=== PATIENT | male | born 1980 | race Caucasian/White ===

== ENCOUNTER 2017-08-24 02:05 | Observation (INO) | payer OTHER ==
[2017-08-24] MEDS ORDERED: NS 1,000 ML IV ONE ×2 (02:11→02:45)
--- NOTE | 2017-08-24 02:18 | EDPHY ---
H & P Time Seen by Provider: 08/24/17 02:14 HPI/ROS: HPI CHIEF COMPLAINT: Full trauma activation. Fall 35 ft. HISTORY OF PRESENT ILLNESS: Patient is a 35-year-old male, unknown medical history unknown surgical history presents emergency room after he fell 35 ft. It is reported by bystanders that he fell down an embankment 35 ft. They did not witness this fall. Patient according to EMS was very agitated and aggressive and combative at the scene. They did give him 400 mg IM ketamine prior to arrival. Upon arrival to the emergency room the patient is lethargic however he does follow intermittent commands and moves extremities. However his mental state is very lethargic either due to trauma versus 400 mg IM ketamine. It is reported by EMS prior to the ketamine that the patient was agitated combative and moving all extremities. He does present to ER room 1. Full trauma activation. Dr. AXEL Mcneill at bedside. Patient is hemodynamically stable with a normal heart rate in the 60s blood pressure in the 1 30s. He has extensive abrasions throughout his head to toe trauma exam. There is no obvious sign of significant trauma on exam. Past Medical History: Unknown medical history Past Surgical History: Unknown surgical history Social History: Alcohol this evening reported by EMS. Also mushroom intoxication possibly reported by EMS Family History: ROS Review of systems extremely limited due to patient's clinical condition additionally the patient received 400 mg IM ketamine prior to arriving to the emergency room by EMS for acute agitation. This limits his history review of systems. Exam Constitutional lethargic lethargic upon arrival, vital signs stable Eyes normal conjunctivae and sclera, EOMI, 6 mm minimally reactive, equal HENT normal inspection, atraumatic, moist mucus membranes, no epistaxis, neck supple/ no meningismus, no raccoon eyes. Respiratory clear to auscultation bilaterally, normal breath sounds, no respiratory distress, no wheezing. Cardiovascular rate normal, regular rhythm, no murmur, no edema, distal pulses normal. Gastrointestinal soft, non-tender, no rebound, no guarding, normal bowel sounds, no distension, no pulsatile mass. Genitourinary no CVA tenderness. Musculoskeletal no midline vertebral tenderness, full range of motion, no calf swelling, no tenderness of extremities, no meningismus, good pulses, neurovascularly intact. Skin extensive abrasions throughout chest abdomen and back. No ecchymosis seen. Neurologic lethargic. Does follow intermittent commands. Moves all extremities. Psychiatric normal mood/affect. Heme/Lymph/Immune no lymphadenopathy. Differential Diagnosis: Includes but is not limited to in a particular order poly trauma, intracranial bleed, cervical spine injury, solid organ injury, thoracic injury, drug intoxication, alcohol intoxication, dehydration, rhabdomyolysis, electrolyte disturbance Medical Decision Making: Plan for this patient IV establishment IV fluid bolus , given his mental state he does intermittently follow commands and response to verbal and painful stimuli however is lethargic he does not require intubation emergently at this time. Will monitor his airway closely. Additionally he will have CT scan head, neck, chest abdomen pelvis with IV contrast with recon. Patient is 2 large-bore IVs. Patient has been typed and screen. Blood work has been ordered and CT scans. His fast was performed by Dr. AXEL Mcneill in the trauma [place] was negative. Re-evaluation: Critical Care: Total Critical Care Time Spent Managing this Patient: 65 Minutes. This time was spent Exclusively with this patient. This Care was exclusive of procedures. The Organ System/life at risk was poly trauma This Patient was in Critical Condition because poly trauma potentially multiple traumatic injuries. Fall [address] Oneal Mckeon called me with the CT reports. CT scan head without contrast there is a very small hyperdensity in the right lateral ventricle that could be a very small intraventricular hemorrhage. CT of the cervical spine without contrast shows no evidence of acute trauma. Additionally on the CT scan of the head shows a nasal spine fracture. Otherwise atraumatic head and neck CT. 0257: I did speak with Neurosurgery Dr. Salmeron, discussed this CT head scan with him. He will plan on consulting on the patient the morning. CT scan abdomen pelvis and chest with IV contrast for trauma shows no acute traumatic injury no solid organ injury. Called to me by Dr. Oneal mckeon. Please see full dictation of CT report for details. 0327: I did re-evaluate the patient is answer my questions appropriately. His friends at bedside states that he did fall down an embankment. Patient is resting comfortably at this time. He is hemodynamically stable. Patient be admitted to the ICU for monitoring. Remains in cervical collar. Patient back exam mid back shows a deep abrasion. Does not need sutures. Patient reports to me his tetanus shot is up-to-date. Source: Patient, EMS Constitutional: Initial Vital Signs Temperature (C) 36.8 C 08/24/17 03:55 Heart Rate 74 08/24/17 03:55 Respiratory Rate 16 08/24/17 03:55 Blood Pressure 130/77 H 08/24/17 03:55 O2 Sat (%) 92 08/24/17 03:55 Allergies/Adverse Reactions: No Known Allergies Allergy (Unverified 08/24/17 02:46) Home Medications: Medication Instructions Recorded NK [No Known Home Meds] 08/24/17 Medical Decision Making - Data Points Laboratory Results: Laboratory Results 08/24/17 02:10 08/24/17 02:10 Medications Given: Lactated Ringer's (Lr) 1,000 mls @ 75 mls/hr IV CONT BRITT Stop: 02/20/18 04:59 Last Admin: 08/24/17 04:15 Dose: 1,000 mls Discontinued Medications Sodium Chloride (Ns) 1,000 mls @ 0 mls/hr IV ONCE ONE; Wide Open PRN Reason: Protocol Stop: 08/24/17 02:12 Last Admin: 08/24/17 02:46 Dose: 1,000 mls Sodium Chloride (Ns) 1,000 mls @ 0 mls/hr IV ONCE ONE PRN Reason: Wide Open Stop: 08/24/17 02:46 Last Admin: 08/24/17 02:47 Dose: 1,000 mls Point of Care Test Results: Chemistry 08/24/17 02:13 POC Sodium 144 mEq/L mEq/L (135-145) POC Potassium 4.1 mEq/L mEq/L (3.3-5.0) POC Chloride 105 mEq/L mEq/L (97-110) POC BUN 9 mg/dL mg/dL (7-23) POC Creatinine 1.0 mg/dL mg/dL (0.7-1.3) POC Glucose 99 mg/dL mg/dL (70-100) ISTAT H&H 08/24/17 02:13 POC Hgb 17.3 gm/dL gm/dL (13.7-17.5) POC Hct 51 % % (40-51) Departure - Departure Disposition: [facility] In[facility] Acute Clinical Impression: Multiple abrasions, IVH (intraventricular hemorrhage) Fall Qualifiers: Encounter type: initial encounter Qualified Code(s): W19.XXXA - Unspecified fall, initial encounter Contusion Qualifiers: Encounter type: initial encounter Contusion area: head Contusion of head detail : unspecified part of head Qualified Code(s): S00.93XA - Contusion of unspecified part of head, initial encounter Condition: Critical
[2017-08-24 02:23] LABS: PLATELET COUNT 276 10^3/uL (150-400)
[2017-08-24 02:33] LABS: INR 1.09 (0.83-1.16); PROTIME(PATIENT) 14.3 SEC (12.0-15.0)
--- NOTE | 2017-08-24 03:07 | PDCONSULT ---
Journeyman Pipefitter Note: NEUROSURGERY Imaging reviewed. Full consult to follow. 36M fall down 35 foot embankment while intoxicated. Exam normal in ED. Radiology mentioning a possible right lateral ventricular IVH which I am not able to appreciate on the scans. -continue trauma workup -no need for furhter neurosurgical intervention. -no need for furhter scans unless exam change -pleas call with any questions or exam change. John Salmeron MD
[2017-08-24] MEDS ORDERED: HYDROmorphone HCL/NS 0.5 MG/ML SYR IVP PRN (04:30)
[2017-08-24] MEDS ORDERED: ONDANSETRON 4 MG/2 ML VIAL IVP PRN (04:30)
[2017-08-24] MEDS ORDERED: LR 1,000 ML IV SCH (05:00)
[2017-08-24 05:39] LABS: CREATINE KINASE 1229 IU/L (0-224)
--- NOTE | 2017-08-24 05:42 | CPEKG ---
Heart Rate: 78 RR Interval: 769 P-R Interval: 152 QRSD Interval: 90 QT Interval: 396 QTC Interval: 452 P [place]: 31 QRS [place]: 13 T Wave [place]: 10 EKG Severity - NORMAL ECG - EKG Impression: SINUS RHYTHM Electronically Signed By: Trina Greenberg 24-Aug-2017 21:40:42
--- NOTE | 2017-08-24 08:07 | SOAPPROG ---
SOAP Progress Note Assessment/Plan: Assessment: 36-YEAR-OLD MALE ADMITTED AT THIS TIME AFTER A FALL IN THE [place] AFTER DOING SOME MUSHROOMS AND DRINKING BROUGHT TO THE ER VERY SEDATED AFTER DOSED KETAMINE. HE APPARENTLY FELL DOWN 35 FT EMBANKMENT BUT OBVIOUSLY WENT THROUGH LOTS OF BUSHES AND/OR TREES WITH ALL THE SCRATCH IS ALL OVER HIS BODY. NO APPARENT MAJOR INJURIES ALTHOUGH THE PATIENT IS MINIMALLY RESPONSIVE BUT MOVING ALL EXTREMITIES MARTINEZ CT SCAN SHOWS NO REAL INJURIES FROM HEAD TO PELVIS. QUESTIONABLE DOT OF INTRAVENTRICULAR HEMORRHAGE HEENT PUPILS LARGE BUT REACTIVE, NO SIGNS OF HEAD TRAUMA, NO ORAL LESIONS NECK NONTENDER BUT IN A CERVICAL COLLAR CHEST CLEAR AND SYMMETRIC WITH NO PALPABLE RIB FRACTURES OR CLAVICLE FRACTURES COR REGULAR RHYTHM ABDOMEN SOFT NONTENDER WILL NONDISTENDED WITH BOWEL SOUNDS PELVIS INTACT AND NONTENDER EXTREMITIES FULL RANGE OF MOTION FULL DISTAL PULSES BACK NO BONY ABNORMALITIES OR STEP-OFFS HE DOES HAVE SOME SWELLING OVER THE RIGHT POSTERIOR 11TH AND 12TH RIBS JUST OFF THE MIDLINE NEURO MOVES ALL EXTREMITIES, SENSORY EXAM NOT USEFUL 9, CRANIAL NERVES INTACT, RESPONSIVE ONLY TO LOUD VERBAL STIMULI Plan: ADMIT FOR OBSERVATION IN ICU 08/24/17 08:01 Objective: Vital Signs Temp Pulse Resp BP Pulse Ox 36.9 C 78 14 102/57 L 96 08/24/17 06:00 08/24/17 06:00 08/24/17 06:00 08/24/17 06:00 08/24/17 06:00 Laboratory Results 08/24/17 04:57 08/23/17 08/24/17 08/25/17 05:59 05:59 05:59 Intake Total 2100 Output Total 1450 Balance 650 PT 14.3 SEC (12.0-15.0) 08/24/17 02:10 INR 1.09 (0.83-1.16) 08/24/17 02:10 ICD10 Worksheet Patient Problems: Problems Problem Status Onset Contusion Acute Fall Acute IVH (intraventricular hemorrhage) Acute Multiple abrasions Acute
--- NOTE | 2017-08-24 08:10 | SOAPPROG ---
SOAP Progress Note Assessment/Plan: Assessment: 36-YEAR-OLD MALE ADMITTED AT THIS TIME AFTER A FALL IN THE [place] AFTER DOING SOME MUSHROOMS AND DRINKING BROUGHT TO THE ER VERY SEDATED AFTER DOSED KETAMINE. HE APPARENTLY FELL DOWN 35 FT EMBANKMENT BUT OBVIOUSLY WENT THROUGH LOTS OF BUSHES AND/OR TREES WITH ALL THE SCRATCH IS ALL OVER HIS BODY. NO APPARENT MAJOR INJURIES ALTHOUGH THE PATIENT IS MINIMALLY RESPONSIVE BUT MOVING ALL EXTREMITIES MARTINEZ CT SCAN SHOWS NO REAL INJURIES FROM HEAD TO PELVIS. QUESTIONABLE DOT OF INTRAVENTRICULAR HEMORRHAGE HEENT PUPILS LARGE BUT REACTIVE, NO SIGNS OF HEAD TRAUMA, NO ORAL LESIONS NECK NONTENDER BUT IN A CERVICAL COLLAR CHEST CLEAR AND SYMMETRIC WITH NO PALPABLE RIB FRACTURES OR CLAVICLE FRACTURES COR REGULAR RHYTHM ABDOMEN SOFT NONTENDER WILL NONDISTENDED WITH BOWEL SOUNDS PELVIS INTACT AND NONTENDER EXTREMITIES FULL RANGE OF MOTION FULL DISTAL PULSES BACK NO BONY ABNORMALITIES OR STEP-OFFS HE DOES HAVE SOME SWELLING OVER THE RIGHT POSTERIOR 11TH AND 12TH RIBS JUST OFF THE MIDLINE NEURO MOVES ALL EXTREMITIES, SENSORY EXAM NOT USEFUL 9, CRANIAL NERVES INTACT, RESPONSIVE ONLY TO LOUD VERBAL STIMULI Plan: ADMIT FOR OBSERVATION IN ICU 08/24/17 08:01 08/24/17 08:08 PATIENT DOING WELL NOW BUT BRIEF 60 SEC EPISODE OF ASYSTOLE WHICH RESPONDED RAPIDLY TO CPR EARLY THIS MORNING LABS OKAY/EKG OKAY/ALERT ORIENTED AND TOTALLY RESPONSIVE/NECK SUPPLE NONTENDER AND C COLLARED REMOVED PATIENT TOTALLY ALERT NOW AND COMFORTABLE WITH NO NEW COMPLAINTS/ WILL NEED CARDIOLOGY EVAL PRIOR TO DISCHARGE Objective: Vital Signs Temp Pulse Resp BP Pulse Ox 36.9 C 78 14 102/57 L 96 08/24/17 06:00 08/24/17 06:00 08/24/17 06:00 08/24/17 06:00 08/24/17 06:00 Laboratory Results 08/24/17 04:57 08/23/17 08/24/17 08/25/17 05:59 05:59 05:59 Intake Total 2100 Output Total 1450 Balance 650 PT 14.3 SEC (12.0-15.0) 08/24/17 02:10 INR 1.09 (0.83-1.16) 08/24/17 02:10 ICD10 Worksheet Patient Problems: Problems Problem Status Onset Contusion Acute Fall Acute IVH (intraventricular hemorrhage) Acute Multiple abrasions Acute
--- NOTE | 2017-08-24 09:01 | GHP ---
[f rep st] PREOP HISTORY AND PHYSICAL DATE OF ADMISSION: 08/24/2017 HISTORY OF PRESENT ILLNESS: Patient is a 36-year-old male who was brought in by ambulance after appa rent fall down a hillside for 35 feet. Patient is minimally responsive to loud verbal stimuli. He d id receive a large dose of ketamine on the way in transport. The patient had been doing some psilocy bin drugs and alcohol while camping and apparently got up in the left his tent in the middle of the n ight. On admission, he was stuporous and responsive only to very loud verbal stimuli, but he did mov e all extremities and he followed a few simple commands. CT scan in the ER from head to pelvis was n egative for any major injuries or internal bleeding. A fast scan done at the [facility] [place] was negative for any intraabdominal blood. His only apparent injury is multiple scratches throughout his chest, extremities, and midback. PAST MEDICAL HISTORY: Unobtainable. REVIEW OF SYSTEMS: Unobtainable. FAMILY HISTORY: Unobtainable. ALLERGIES: No known allergies by report. MEDICATIONS: Unknown. PHYSICAL EXAMINATION: GENERAL: Reveals a minimally responsive 36-year-old male in no acute distress . VITAL SIGNS: He is afebrile. HEAD/NECK: Reveals no evidence of trauma. Pupils are dilated, but responsive. No oral lesions. His occlusion appears to be normal. TMs are clear. NECK: In a cerv ical collar, but does not appear to be tender. CHEST: Reveals some superficial abrasions, but no pa lpable abnormalities. Breath sounds are equal bilaterally. CARDIAC: Regular rhythm without murmurs . ABDOMEN: Soft, nondistended, and nontender with some bowel sounds. GENITALIA: Normal. EXTREMITIES: Benign with full range of motion, full pulses. He does have some diffuse scratches. N EUROLOGIC: Reveal his cranial nerves to be intact. He has full motor function. Sensory exam is macey btainable, and he is stuporous and minimally responsive at this time. IMPRESSION: 1. Multiple abrasions. 2. Stupor, probably secondary to drugs, alcohol, and ketamine with no obvious signs of head trauma. PLAN: Admit to ICU for observation. He will receive a Neurosurgery consultation in the morning for a tiny questionable area of bleeding intraventricularly. /[id number]/MODL
--- NOTE | 2017-08-24 09:41 | ASMTCMCOM ---
CM Note CM Note Notes: 36yr old male, fell 35' after consuming ETOH and Mushrooms, admitted for abrasions. OBS status, minimally responsive. Not anticipating that patient will have discharge needs. Date Signed: 08/24/2017 09:41 AM Electronically Signed By:Marissa Dalton LCSW
[2017-08-24] MEDS ORDERED: ACETAMINOPHEN 325 MG TAB PO PRN (10:33)
[2017-08-24] MEDS ORDERED: IBUPROFEN 600 MG TAB PO PRN (10:33)
[2017-08-24] MEDS ORDERED: ATROPINE SULFATE 1 MG/10 ML SYR IVP PRN (11:02)
--- NOTE | 2017-08-24 11:06 | GCON ---
[f rep st] CONSULTATION CARDIAC CONSULTATION DATE OF CONSULTATION: 08/24/2017 CHIEF COMPLAINT: Asystole. HISTORY OF PRESENT ILLNESS: This is a 36-year-old gentleman with no known history of known coronary artery disease, significant arrhythmias, or congenital cardiac issues. He has been susceptible to va sovagal syncope with blood draws and emotions in the past. Yesterday, he apparently was in the [facility] for rehab medicine with friends, was drinking and using Psilocybin. He had sustained a 35 foot fall, was brought t o the emergency room, and apparently did not sustain any significant internal injuries. Overnight, chloe butcher had 2 episodes of sinus arrest with asystole with spontaneous resolution. These lasted between 3 a nd 10-12 seconds. In speaking to him, he had no premonition of palpitations, nausea, vomiting, or ot her issues. His EKG on admission showed normal sinus rhythm without any ischemic changes or interval changes. He denies any fever, chills, nausea, vomiting. He is not taking any leza-sao-mmbnckh medi cines or other prescribed medicines. His only drugs were those taken on a recreational basis as note d above. PAST MEDICAL HISTORY: Noncontributory. FAMILY HISTORY: No history of any cardiac issues of the electrical or coronary artery disease nature . No history of cardiomyopathies. ALLERGIES: He has no known allergies. PHYSICAL EXAMINATION: GENERAL/VITAL SIGNS: The patient is seen lying in the ICU. He is alert and o riented x3. His blood pressure is 104/62, pulse rate is 76 and sinus. He is afebrile. Generally, chloe butcher is a young male in no acute distress. He has some abrasions on his face from his fall. He is not having any chest pain or other issues. NECK: Supple. MOUTH: Oropharynx was moist. LUNGS: Clear to auscultation. CARDIOVASCULAR: Regular rate and rhythm without murmur, gallop, or rub. ABDOMEN: Soft, nontender. MUSCULOSKELETAL: Showed no cyanosis, clubbing, or edema. LABORATORY DATA: White count was 17, hemoglobin was 16. Potassium was 4.1, creatinine 0.7. CKs and troponins were normal. ASSESSMENT: Sinus arrest. I suspect given his history, this would be consistent with a possible car diac contusion. The patient will have an echocardiogram ordered at this time. He apparently did not have significant chest trauma, but did fall up to 35 feet landing on his back. He has no chest pain or shortness of breath at this time. He has no history of known arrhythmias, and his EKG shows no s ignificant ischemic changes or interval prolongation. At this time, he is in sinus rhythm and active and comfortable. Atropine will be placed at the bedside. He does have external patches placed at t his time as well. If he had further events, consideration of a temporary pacemaker could be consider ed. However, at this point, we will get the echocardiogram and continue to monitor. His questions w ere answered. Discussed this with the RN. Further care depending on his clinical course. /[id number]/MODL
--- NOTE | 2017-08-24 13:32 | TRAUMAPN ---
Trauma Progress Note Assessment/Plan: 36-year-old status post fall. He was using mushrooms. He had a full trauma workup and only abrasions were noted. However he then developed cardiac arrest and CPR was performed. He had another event this morning where he had a vagal response. Appreciate Dr. Luo seeing him. Will await on his recommendations and plan prior to discharge I saw him after the vagal episode. He was lying in bed and appeared comfortable. He was a good historian. He is able to recount that he has several times where he has had near fainting episodes. These have occurred when donating blood or when thinking about his mother in the hospital who due to breast cancer. Tertiary survey performed Objective: Vital Signs Temp Pulse Resp BP Pulse Ox 36.6 C 79 20 104/62 93 08/24/17 07:00 08/24/17 10:00 08/24/17 10:00 08/24/17 10:00 08/24/17 08:00 Laboratory Results 08/24/17 04:57 08/23/17 08/24/17 08/25/17 05:59 05:59 05:59 Intake Total 2100 600 Output Total 1450 Balance 650 600 PT 14.3 SEC (12.0-15.0) 08/24/17 02:10 INR 1.09 (0.83-1.16) 08/24/17 02:10 Physical Exam - Physical Exam General Appearance: WD/WN, alert, no apparent distress EENT: PERRL/EOMI, normal ENT inspection, No scleral icterus (R), No scleral icterus (L), No hearing deficit Neck: non-tender, full range of motion Respiratory: chest non-tender, lungs clear Cardiac/Chest: regular rate, rhythm, No edema Abdomen: normal bowel sounds, non-tender, soft Back: Normal inspection Skin: other (multiple small abrasions on abdomen and back) Extremities: normal range of motion, non-tender, other (5/5 strength upper and lower extremities) Neuro/Psych: no motor/sensory deficits, other (II-XII grossly intact. )
--- NOTE | 2017-08-24 14:52 | GCON ---
[f rep st] CONSULTATION NEUROSURGERY CONSULT. DATE OF CONSULTATION: 08/24/2017 TIME/LOCATION: The patient was seen evaluated at 8:30 a.m. in the ICU at [facility]. HISTORY OF PRESENT ILLNESS: The patient is a 36-year-old man who was intoxicated last evening when h e fell apparently 35 feet down an embankment. There were some bystanders nearby, but they did not cl early witness the fall. According to EMS. He was agitated and somewhat combative at the scene. He got some ketamine prior to arrival here. By the time he arrived due the ketamine, he was somewhat le thargic, but was following commands, moving all of his extremities. He was evaluated by the trauma t eam in the emergency department. He had multiple abrasions and a CT of the head was read as showing a possible small intraventricular hemorrhage in the right lateral ventricle. I reviewed these films and I do not see any clear abnormalities. I suppose a small tiny intraventricular hemorrhage could n ot be ruled out, but the patient this morning has no headaches and is otherwise asymptomatic, so I th ink regardless, it is relatively equivocal if there was a small traumatic bleed or not. He currently has no complaints, but did have a few short episodes of asystole this morning, which were symptomati c in that he was feeling faint. REVIEW OF SYSTEMS: A 10-point review of systems is currently negative, other than that described abo ve in HPI. PAST MEDICAL HISTORY: None. PAST SURGICAL HISTORY: None. SOCIAL HISTORY: The patient was quite intoxicated when he arrived last night, also may have been [employer] mushrooms. All of this is somewhat unclear. FAMILY HISTORY: Reviewed with the patient, but is noncontributory to this admission. PHYSICAL EXAMINATION: VITAL SIGNS: Currently, he is afebrile with normal stable vital signs. NEURO LOGIC: He is awake, alert, and oriented x3. Pupils equal, round, and react to light. Extraocular m ovements are intact. Face symmetric. Tongue is midline. He has full 5/5 strength at the deltoid, b iceps, triceps, wrist flexion, extension, and chief commercial officer bilaterally. In the lower extremities, he has 5/5 strength in hip flexors and extensors, knee flexors and extensors, and plantar and dorsiflexion bila terally. Deep tendon reflexes are normal and sensation is normal. IMAGING REVIEW: See HPI. ASSESSMENT/PLAN: The patient is a 36-year-old man who had a fall down to a 35 foot embankment last e vening when he was intoxicated. This morning, his neurologic exam was completely normal. I have rev iewed his films and I am not convinced at all that there is any traumatic injuries or bleed there, bu t I suppose we could not probably rule out an equivocal tiny hemorrhage. I do not think he needs any further scans or other neurosurgical intervention or followup. The trauma team is going to workup h is episodes of asystole that he had this morning, but I certainly do not see any neurologic basis for this. Please do not hesitate to contact us with any further questions or concerns. Thanks for the consult. /[id number]/MODL
--- NOTE | 2017-08-24 16:42 | ECHO ---
[email or web address] [address] [address] Main: [phone] Fax: Transthoracic Echocardiogram Name: DANA CAZARES MR#: [id number] Study Date: 08/24/2017 Study Time: 12:28 PM Date of : 1980 Age: 36 year(s) Height: 170.2 cm (67 in.) Weight: 79.38 kg (175 lb.) BSA: 1.91 m2 Gender: Male Examination: Echo Indication: Asystole, Bradycardia, Fall Image Quality: Contrast: Requested by: Alhaji Luo BP: 116 mmHg/65 mmHg Heart Rate: Rhythm: Normal sinus rhythm Indication: Asystole, Bradycardia, Fall Procedure Staff Practice Manager: Ramon Rosenthal RDCS Reading Physician: Zi Monterroso MD Requesting Provider: Conclusions: Normal study Measurements: Chambers Valvular Assessment AV/MV Valvular Assessment TV/PV Normal Normal Normal Name Value Range Name Value Range Name Value Range Ao Cee (MM): 3.3 cm (2.2 cm-3.7 AV Vmax: 1.52 m/s (1 m/s-1.7 PV Vmax: 1.15 m/s (0.6 m/s-0.9 cm) m/s) m/s) IVSd (2D): 0.9 cm (0.6 cm-1.1 AV maxP mmHg ( - ) PV PGmax: 5 mmHg ( - ) cm) LVOT Vmax: 0.99 m/s (0.7 m/s-1.1 LVDd (2D): 4.8 cm (4.2 cm-5.9 m/s) cm) MV E Vmax: 0.84 m/s ( - ) LVDs (2D): 2.6 cm (2.1 cm-4 MV A Vmax: 0.63 m/s ( - ) cm) MV E/A: 1.33 ( - ) LVPWd (2D): 1.0 cm (0.6 cm-1 cm) LVEF (2D): 77 (>=54 %) Continued Measurements: Chambers Valvular Assessment AV/MV Name Value Name Value LADs Lon.1 cm MV E' Septal: 0.09 m/s LA Area: 15.4 cm2 MV E/E' Septal: 9.00 LA Volume: 39 ml MV E/E' Lateral: 6.40 LA Volume Index: 20.4 ml/m2 Findings: Left Ventricle: Patient: DANA CAZARES Study Date: 08/24/2017 Page 1 of 2 12:28 PM Normal size left ventricle. No LV hypertrophy. Normal global systolic LV function. EF is 77 %. No regional wall motion abnormality. Normal diastolic LV function. Right Ventricle: Normal size right ventricle. Left Atrium: The left atrium is normal in size. Right Atrium: The right atrium is normal in size. Mitral Valve: The mitral valve is normal in appearance and function. Aortic Valve: The aortic valve is normal in appearance and function. Tricuspid Valve: The tricuspid valve is normal in appearance and function. Pulmonic Valve: The pulmonic valve is normal in appearance and function. Aorta: The aorta is normal. Pericardium: No pericardial effusion. (No Signature Object) Patient: DANA CAZARES Study Date: 08/24/2017 Page 2 of 2 12:28 PM [id number]
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
[2017-08-25 14:50] VITALS: BP 133/73
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
--- NOTE | 2017-08-25 15:01 | ASMTLACE ---
ALAN Length of stay for Answers: 1 day current admission Acuity / Level of Answers: No Care: Did the patient have an inpatient admission? Comorbidities - select Answers: Other Notes: Fall: abrasions all that apply # of Emergency department Answers: 1-2 visits in the last 6 months Social determinants Answers: History of substance abuse (ETOH, street drugs, prescription drugs, etc.) Score: 6 Date Signed: 08/25/2017 03:01 PM Electronically Signed By:Antonia Bearden RN
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
== END 2017-08-25 15:56 | disposition home or self-care (01) ==
LOC: EDBD 02:37 → F2N 03:46 → F2W 08-25 10:12
PROVIDERS: ADMIT Surgery; ATTEND Surgery
DX: I46.9 Cardiac arrest, cause unspecified (principal); T14.8XXA Other injury of unspecified body region, initial encounter; W17.81XA Fall down embankment (hill), initial encounter; Y92.828 Other wilderness area as the place of occurrence of the external cause; F10.129 Alcohol abuse with intoxication, unspecified; F16.90 Hallucinogen use, unspecified, uncomplicated
CPT/HCPCS: 70450; 71045; 71260; 72125; 72129; 72132; 74177; 92523; 93005; 93306; 97161; G0378; 80305; 82435-PO; 82565-PO; 82947-PO; 84132-PO; 84295-PO; 84520-PO; 85014-PO; G0480